=== PATIENT | male | born 1950 | race Caucasian/White ===

== ENCOUNTER → 2018-08-14 | Outpatient (CLI) | payer MEDICARE, MEDICAID | END | disposition home or self-care (01) | LOC: CFH 06:52 | PROVIDERS: ATTEND Family Medicine | DX: Z13.6 Encounter for screening for cardiovascular disorders (principal) | CPT/HCPCS: 76706 ==

== ENCOUNTER 2019-02-25 16:05 | Outpatient (CLI) | payer MEDICARE, MEDICAID | END 2019-02-25 23:59 | disposition home or self-care (01) | LOC: CFH 16:05 | PROVIDERS: ATTEND Nurse Practitioner | DX: Z12.2 Encounter for screening for malignant neoplasm of respiratory organs (principal); Z87.891 Personal history of nicotine dependence | CPT/HCPCS: G0297 ==

== ENCOUNTER 2020-07-15 09:27 | Outpatient (CLI) | payer MEDICARE, MEDICAID | END 2020-07-15 23:59 | disposition home or self-care (01) | LOC: CVU 09:27 | PROVIDERS: ATTEND Psychiatry & Neurology Neurology | DX: I08.3 Combined rheumatic disorders of mitral, aortic and tricuspid valves (principal); I65.23 Occlusion and stenosis of bilateral carotid arteries; I11.9 Hypertensive heart disease without heart failure; I63.9 Cerebral infarction, unspecified | CPT/HCPCS: 93306; 93880 ==